=== PATIENT | male | born 1950 | race American Indian/Alaskan Native ===

== ENCOUNTER 2018-03-29 12:32 | Emergency (ER) | payer MEDICARE ==
[2018-03-29 12:42] VITALS: BP 123/67
[2018-03-29 13:32] LABS: Bilirubin,Urine NEG (Negative); Blood,Urine NEG (Negative); Color,Urine Straw (Yellow); Protein,Urine <15 mg/dL mg/dL (Negative); Urobilinogen,Urine < 2.0 mg/dL (<2.0)
--- NOTE | 2018-03-29 15:04 | Emergency Department Report ---
ED Dysuria HPI - HPI Chief Complaint: Urogenital-Male Stated Complaint: BLOOD IN URINE Time Seen by Provider: 03/29/18 14:48 Duration: 1 Day Location of Discomfort: Urethra (dysuria) Severity: Mild Symptoms: Dysuria: No, Frequency: No, Suprapubic Pain: No, Flank Pain: No, Fever : No, Hematuria: Yes, Abdominal Pain: No, Previous UTI's: No Other History: saw urine in blood yesterday. none today ED Review of Systems ROS: Stated complaint: BLOOD IN URINE Other details as noted in HPI Comment: Unobtainable due to pts medical conditions Constitutional: denies: chills, fever Eyes: denies: eye pain ENT: denies: ear pain, throat pain Respiratory: denies: cough, orthopnea Cardiovascular: denies: chest pain, palpitations, dyspnea on exertion, orthopnea Endocrine: denies: flushing, intolerance to cold, intolerance to heat Gastrointestinal: denies: abdominal pain, nausea, vomiting Genitourinary: hematuria (yest; none today.). denies: urgency, dysuria Musculoskeletal: denies: back pain Skin: denies: rash, lesions Neurological: denies: headache, weakness Psychiatric: denies: anxiety, depression Hematological/Lymphatic: denies: easy bleeding ED Past Medical Hx - Past Medical History Hx Hypertension: Yes Hx Diabetes: Yes Additional medical history: AFIB, GI BLEED, off coumadin - Surgical History Past Surgical History?: No - Social History Smoking Status: Former Smoker Substance Use Type: None - Medications Home Medications: Home Medications Medication Instructions Recorded Confirmed Last Taken Type Allopurinol [Zyloprim] 300 mg PO QDAY 03/01/18 03/01/18 Unknown History Doxazosin Mesylate [Cardura] 4 mg PO QDAY 03/01/18 03/01/18 Unknown History Atenolol [Tenormin] 50 mg PO DAILY #30 tablet 03/07/18 Unknown Rx Diltiazem HCl [Diltiazem 24Hr Cd] 240 mg PO QDAY #30 cap.er.24h 03/07/18 Unknown Rx Empagliflozin [Jardiance] 10 mg PO QDAY #30 tablet 03/07/18 Unknown Rx Metformin HCl [Glucophage] 500 mg PO BID #60 tablet 03/07/18 Unknown Rx Sitagliptin Phosphate [Januvia] 100 mg PO QDAY #30 tablet 03/07/18 Unknown Rx Theophylline Anhydrous ER [Juan David-24] 300 mg PO BID #60 capsule 03/07/18 Unknown Rx Warfarin Sodium [Coumadin] 12 mg PO Q48HR #30 tablet 03/07/18 Unknown Rx hydroCHLOROthiazide 25 mg PO QDAY #30 tablet 03/07/18 Unknown Rx [Hydrochlorothiazide] predniSONE [Deltasone] 10 mg PO Q48HR #30 tablet 03/07/18 Unknown Rx Dysuria Exam - Exam General: Vital signs noted. No distress. Alert and acting appropriately. Exam: Yes Moist Mucous Membranes, No CVA Tenderness, No Abdominal Tenderness, No Rigidity or Guarding Exam: neuro intact. no edema/ no jvd/ S1S2. lungs cta. no abd pain or tenderness; snt. ambulatory. no dysuria or discharge from penis. blood sugar 91 per pt this am Labs: Lab Results 03/29/18 Range/Units 13:00 Urine Color Straw (Yellow) Urine Turbidity Clear (Clear) Urine pH 6.0 (5.0-7.0) Ur Specific [place] 1.003 (1.003-1.030) Urine Protein <15 mg/dl (Negative) mg/dL Urine Glucose (UA) >=500 (Negative) mg/dL Urine Ketones Neg (Negative) mg/dL Urine Blood Neg (Negative) Urine Nitrite Neg (Negative) Urine Bilirubin Neg (Negative) Urine Urobilinogen < 2.0 (<2.0) mg/dL Ur Leukocyte Esterase Sm (Negative) Urine WBC (Auto) 2.0 (0.0-6.0) /HPF Urine RBC (Auto) 1.0 (0.0-6.0) /HPF U Epithel Cells (Auto) < 1.0 (0-13.0) /HPF ED Course Vital Signs 03/29/18 12:37 Temperature 98.3 F Pulse Rate 69 Respiratory 18 Rate Blood Pressure 123/67 O2 Sat by Pulse 98 Oximetry ED Medical Decision Making - Medical Decision Making no pain off coumadin blood only seen 1 time last pm DM bs 91 this am taking dm meds NO DYSURIA NO FEVER NO DIFF W STREAM NO BLOOD TODAY - Differential Diagnosis RO UTI; RO CYSTITIS; RO K STONE Critical care attestation.: If time is entered above; I have spent that time in minutes in the direct care of this critically ill patient, excluding procedure time. ED Disposition Clinical Impression: Diabetes, Hematuria Disposition: DC-01 TO HOME OR SELFCARE Is pt being admited?: No Does the pt Need Aspirin: No Condition: Stable Instructions: Diabetes Mellitus Type 2 in Adults (ED) Additional Instructions: follow blood sugars take home meds follow up with pcp diabetic diet hydrate well activity as tolerated follow up with urology if you have any more hematuria Referrals: PRIMARY CARE, [Primary Care Provider] - 3-5 Days NAYELI NAGEL MD [Staff Physician] - 3-5 Days AYAD CHANEL MD [Staff Physician] - 3-5 Days Time of Disposition: 15:03
== END 2018-03-29 15:41 | disposition home or self-care (01) ==
LOC: ED 12:32
DX: R30.0 Dysuria (principal); R31.9 Hematuria, unspecified; E11.69 Type 2 diabetes mellitus with other specified complication; I10 Essential (primary) hypertension; Z87.891 Personal history of nicotine dependence
CPT/HCPCS: 81001; 82962; 99283

== ENCOUNTER 2018-10-22 19:38 | Inpatient (IN) | payer MEDICARE ==
[2018-10-22 20:39] LABS: Basophils # (Auto) 0.1 K/mm3 (0.0-0.1); Basophils % (Auto) 1.1 % (0.0-1.8); Eosinophils # (Auto) 0.1 K/mm3 (0.0-0.4); Eosinophils % (Auto) 1.3 % (0.0-4.3); Hematocrit 45.6 % (35.5-45.6); Hemoglobin 14.9 gm/dl (11.8-15.2); Lymphocytes % (Auto) 27.8 % (13.4-35.0); Mean Corpuscular HGB Conc 33 % (32-34); Mean Corpuscular Volume 89 fl (84-94); Monocytes # (Auto) 1.2 K/mm3 (0.0-0.8); Monocytes % (Auto) 11.3 % (0.0-7.3); Platelet Count 276 K/mm3 (140-440); Red Blood Count 5.12 M/mm3 (3.65-5.03); Red Cell Distribution Width 15.5 % (13.2-15.2)
[2018-10-22] MEDS ORDERED: NACL 0.9% 1000 ML 1,000 ML IV ONE ×2 (20:40→21:12)
--- NOTE | 2018-10-22 20:46 | Emergency Department Report ---
HPI - General Chief Complaint: GI Bleed Time Seen by Provider: 10/22/18 20:34 - HPI HPI: 68-year-old -Finnish male presents to the emergency department with complaint of one-day history of rectal bleeding with some lower abdominal pains. He says that there is been a total of 6 episodes of rectal bleeding including 2 upon presentation to the emergency department. He has a history of previous GI bleed and had some type of interventional radiology procedure last year. A tagged RBC scan had shown some bleeding from the distal ileum. The patient has a past medical history of diverticulosis and also has a history of hypertension, paroxysmal A. fib. He is not currently on any anticoagulation or antiplatelet medications. His primary care physician is Dr. Luis Miguel Weinstein and his child care leader is Dr. Greco. No recent travel or sick contacts at home. ED Past Medical Hx - Past Medical History Previous Medical History?: Yes Hx Hypertension: Yes (X 10 YRS) Hx Diabetes: Yes Hx Asthma: Yes (DAILY INHALERS) Hx HIV: No Additional medical history: AFIB, GI BLEED, Diverticulitis - Surgical History Past Surgical History?: Yes - Social History Smoking Status: Never Smoker Substance Use Type: None - Medications Home Medications: Home Medications Medication Instructions Recorded Confirmed Last Taken Type Allopurinol [Zyloprim] 300 mg PO QDAY 03/01/18 10/22/18 05/04/18 21:00 History Atenolol [Tenormin] 50 mg PO DAILY #30 tablet 03/07/18 10/22/18 05/04/18 19:00 Rx Empagliflozin [Jardiance] 10 mg PO QDAY #30 tablet 03/07/18 10/22/18 05/04/18 19:00 Rx Sitagliptin Phosphate [Januvia] 100 mg PO QDAY #30 tablet 03/07/18 10/22/18 05/04/18 09:00 Rx Theophylline Anhydrous ER [Juan David-24] 300 mg PO BID #60 capsule 03/07/18 10/22/18 05/05/18 09:00 Rx predniSONE [Deltasone] 10 mg PO Q48HR #30 tablet 03/07/18 10/22/18 05/03/18 09:00 Rx Ferrous Sulfate [Ferrous Sulfate 324 mg PO DAILY 04/23/18 10/22/18 05/04/18 09:00 History 324 MG] Metformin HCl [Glucophage] 500 mg PO DAILY 04/23/18 10/22/18 05/04/18 21:00 History ED Review of Systems ROS: Stated complaint: RECTAL BLEEDING Other details as noted in HPI Comment: All other systems reviewed and negative Constitutional: denies: chills, fever Eyes: denies: eye pain, vision change ENT: denies: ear pain, throat pain Respiratory: denies: cough, shortness of breath Cardiovascular: denies: chest pain, palpitations Gastrointestinal: abdominal pain, other (rectal bleeding). denies: nausea, vomiting Genitourinary: denies: dysuria, frequency Musculoskeletal: denies: back pain, arthralgia Skin: denies: rash, lesions Neurological: denies: headache, weakness Physical Exam - Physical Exam Vital Signs: Vital Signs 10/22/18 20:07 Temperature 98.6 F Pulse Rate 81 Respiratory 20 Rate Blood Pressure 100/70 O2 Sat by Pulse 94 Oximetry Physical Exam: GENERAL: The patient is well-developed well-nourished. HEENT: Normocephalic. Atraumatic. Patient has moist mucous membranes. EYES: Extraocular motions are intact. Pupils are equal and reactive to light bilaterally. NECK: Supple. Trachea is midline. CHEST/LUNGS: Clear to auscultation. There is no respiratory distress noted. HEART/CARDIOVASCULAR: Regular. There is no tachycardia. There is no obvious murmur. ABDOMEN: Abdomen is soft, nontender. Patient has normal bowel sounds. There is no abdominal distention. SKIN: Skin is warm and dry. NEURO: The patient is awake, alert, and oriented. The patient is cooperative. The patient has no focal neurologic deficits. The patient has normal speech. MUSCULOSKELETAL: There is no tenderness or deformity. There is no limitation range of motion. There is no evidence of acute injury. ED Course Vital Signs 10/22/18 20:07 Temperature 98.6 F Pulse Rate 81 Respiratory 20 Rate Blood Pressure 100/70 O2 Sat by Pulse 94 Oximetry - Consultations Consultation #1: 10/22/18 23:[address] pelaez, the child care leader career transition specialist for Dr. Greco, who listened to the case presentation. Dr. pelaez recommended starting off as an observational stay secondary to the patient's known history of a significant lower GI bleed, diverticulosis, and since he continues to have gross rectal bleeding. They will be happy to see the patient has a consult. ED Medical Decision Making - Lab Data Result diagrams: 10/22/18 20:17 10/22/18 20:17 - Radiology Data Radiology results: report reviewed PROCEDURE: CT ABDOMEN PELVIS W CON TECHNIQUE: Computerized axial tomography of the abdomen and pelvis was performed after the IV injection of iodinated nonionic contrast. CT DOSE LENGTH PRODUCT: 2747.4 mGycm HISTORY: lower abd pain, rectal bleeding COMPARISONS: 02/27/2018 . FINDINGS: Visualized bilateral lung bases demonstrate interstitial septal thickening with honeycombing consistent with interstitial fibrosis. Liver, spleen, pancreas and bilateral a drenal glands are within normal limits. Left kidney demonstrates a simple cyst measuring 5.9 x 4.3 cm. There is no obstructive uropathy. Right kidney is unremarkable. Urinary bladder is minimally filled with normal outlines. Aorta is of normal caliber. There is no free fluid or free air. Gallbladder is unremarkable. Small bowel loops are within normal limits. Appendix is normal. A 3.5 x 3.0 uncomplicated fat-containing umbilical hernia is noted. Mild degree of prostatomegaly is identified. Vertebral height is normal. IMPRESSION: No acute intra-abdominal or pelvic pathology. This document is electronically signed by Sabine Rubi MD., October 22 2018 10:01:18 PM ET Transcribed By: [facility] [place]ictated By: SABINE RUBI Electronically Authenticated By: SABINE RUBI Signed Date/Time: 10/22/18 2209 - Medical Decision Making Patient presents to the emergency department with rectal bleeding and at this point the patient does not even feel that there is any stool involved. Patient had some abdominal pain that responded to IV morphine. A CT scan of the abdomen and pelvis with IV contrast was done that was read as no acute intra-abdominal or pelvic pathology. The patient has had a total of 7 episodes of significant rectal bleeding including 3 within the emergency department. Vital signs stable. Hemoglobin is 14.9. Gastroenterology was contacted and will be consult. The patient was excepted for admission by the hospitalist, Dr. Soriano. - Differential Diagnosis diverticulosis, malignancy, hemorrhoids, peptic ulcer disease Critical Care Time: No Critical care attestation.: If time is entered above; I have spent that time in minutes in the direct care of this critically ill patient, excluding procedure time. ED Disposition Clinical Impression: Rectal bleeding GI bleed Qualifiers: GI bleed type/associated pathology: unspecified gastrointestinal hemorrhage type Qualified Code(s): K92.2 - Gastrointestinal hemorrhage, unspecified Disposition: DC-09 OP ADMIT IP TO THIS HOSP Is pt being admited?: Yes Condition: Fair Referrals: LUIS MIGUEL WEINSTEIN MD [Primary Care Provider] - 3-5 Days Forms: Accompanied Note Time of Disposition: 23:14
[2018-10-22 21:05] LABS: INR 1.04 (0.87-1.13)
[2018-10-22 21:06] LABS: Partial Thromboplastin Time 27.2 Sec. (24.2-36.6)
[2018-10-22] MEDS ORDERED: PROTONIX IV ONE (21:11)
[2018-10-22] MEDS ORDERED: SUBLIMAZE IV ONE ×2 (21:11→21:25)
[2018-10-22 21:15] LABS: BUN/Creatinine Ratio 18; Blood Urea Nitrogen 21 mg/dL (9-20); Calcium 9.4 mg/dL (8.4-10.2); Hemolysis Index 7
[2018-10-22] MEDS ORDERED: SUBLIMAZE ONE (21:26)
--- NOTE | 2018-10-22 22:03 | Cat Scan Report ---
PROCEDURE: CT ABDOMEN PELVIS W CON TECHNIQUE: Computerized axial tomography of the abdomen and pelvis was performed after the IV inject ion of iodinated nonionic contrast. CT DOSE LENGTH PRODUCT: 2747.4 mGycm HISTORY: lower abd pain, rectal bleeding COMPARISONS: 02/27/2018 . FINDINGS: Visualized bilateral lung bases demonstrate interstitial septal thickening with honeycombing consiste nt with interstitial fibrosis. Liver, spleen, pancreas and bilateral adrenal glands are within normal limits. Left kidney demonstrates a simple cyst measuring 5.9 x 4.3 cm. There is no obstructive uropa thy. Right kidney is unremarkable. Urinary bladder is minimally filled with normal outlines. Aorta is of normal caliber. There is no free fluid or free air. Gallbladder is unremarkable. Small bowel loop s are within normal limits. Appendix is normal. A 3.5 x 3.0 uncomplicated fat-containing umbilical he rnia is noted. Mild degree of prostatomegaly is identified. Vertebral height is normal. IMPRESSION: No acute intra-abdominal or pelvic pathology. This document is electronically signed by Theo Rubi MD., October 22 2018 10:01:18 PM ET
--- NOTE | 2018-10-22 23:18 | History and Physical Report ---
History of Present Illness Date of examination: 10/22/18 History of present illness: 68-year-old man with a history of hypertension, diabetes, A. 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 He had 5 episodes at home, 4 episodes in the emergency room. Also complaining of abdominal pain, across the mid abdomen, dull, intermittent for a few minutes, no radiation, intensity 4/10, cannot identify exacerbating or relieving factors Review of systems Constitutional: no weight loss, chills, fever Ears, eyes, nose, mouth and throat: no nasal congestion, no nasal discharge, no sinus pressure, no vision change, no red eye. Neck: No neck pain or rigidity. Cardiovascular: no chest pain, palpitations Respiratory: no cough, shortness of breath Gastrointestinal:+ abdominal pain Genitourinary : no frequency , no hematuria Musculoskeletal: no joint swelling or muscle ache Integumentary: no rash, no pruritis Neurological: no parathesias, no numbness, no focal weakness Endocrine: no cold or heat intolerance, no polyuria or polydipsia Hematologic/Lymphatic: no easy bruising, no easy bleeding, no gland swelling Allergic/Immunologic: no urticaria, no angioedema. PAST MEDICAL HISTORY: hypertension, diabetes, AVM, diverticulosis, leaky valve PAST SURGICAL HISTORY: None SOCIAL HISTORY: No alcohol, no drugs, tobacco FAMILY HISTORY: Hypertension Medications and Allergies Allergies Allergy/AdvReac Type Severity Reaction Status Date / Time No Known Allergies Allergy Verified 04/26/18 14:53 Home Medications Medication Instructions Recorded Confirmed Last Taken Type Allopurinol [Zyloprim] 300 mg PO QDAY 03/01/18 10/22/18 05/04/18 21:00 History Atenolol [Tenormin] 50 mg PO DAILY #30 tablet 03/07/18 10/22/18 05/04/18 19:00 Rx Empagliflozin [Jardiance] 10 mg PO QDAY #30 tablet 03/07/18 10/22/18 05/04/18 19:00 Rx Sitagliptin Phosphate [Januvia] 100 mg PO QDAY #30 tablet 03/07/18 10/22/18 05/04/18 09:00 Rx Theophylline Anhydrous ER [Juan David-24] 300 mg PO BID #60 capsule 09/03/1610/22/18 05/05/18 09:00 Rx predniSONE [Deltasone] 10 mg PO Q48HR #30 tablet 03/07/18 10/22/18 05/03/18 09:00 Rx Ferrous Sulfate [Ferrous Sulfate 324 mg PO DAILY 04/23/18 10/22/18 05/04/18 09:00 History 324 MG] Metformin HCl [Glucophage] 500 mg PO DAILY 04/23/18 10/22/18 05/04/18 21:00 History Active Meds: Active Medications Sodium Chloride (Nacl 0.9% 1000 Ml) 1,000 mls @ 125 mls/hr IV ONCE ONE Stop: 10/23/18 04:39 Exam - Physical Exam Narrative exam: Gen. appearance: Patient lying in bed, no apparent distress HEENT: Normocephalic, atraumatic, pupils equally round and reactive to light, extraocular movement intact, and no sclericterus,. No JVD or thyromegaly or nod ule,neck supple, no carotid bruit ,mucous membranes moist, no exudate or erythema Heart: S1, S2, regular rate and rhythm Lungs: Clear bilaterally, breathing comfortable Abdomen: Positive bowel sounds, non-tender, nondistended, no organomegaly Extremity:no edema cyanosis, clubbing Skin: no rash, dry, warm Neuro: Oriented 3, cranial nerves II-12 intact, speech is fluent, motor and sensory intact - Constitutional Vitals: Temp Pulse Resp BP Pulse Ox 97.7 F 74 24 106/69 96 10/22/18 20:40 10/22/18 22:31 10/22/18 22:31 10/22/18 22:31 10/22/18 22:31 Results - Labs CBC & Chem 7: 10/22/18 23:28 10/22/18 20:17 Labs: Abnormal lab results 10/22/18 10/22/18 Range/Units 20:17 20:17 RBC 5.12 H (3.65-5.03) M/mm3 RDW 15.5 H (13.2-15.2) % [place] % (Auto) 11.3 H (0.0-7.3) % [place] # 1.2 H (0.0-0.8) K/mm3 Carbon Dioxide 21 L (22-30) mmol/L BUN 21 H (9-20) mg/dL Glucose 137 H (75-100) mg/dL - Imaging and Cardiology CT scan - abdomen: report reviewed CT scan - pelvis: report reviewed Assessment and Plan Assessment Lower GI bleed History of AVM, diverticulosis Hypertension Diabetes Asthma A. fib Plan Admit to medicine Monitor serial hemoglobin, GI consulted to ER Start fluid, morphine, Check fingersticks and initiate insulin sliding scale DVT prophylaxis
[2018-10-22] MEDS ORDERED: SODIUM CHLORIDE FLUSH SYRINGE 10 ML IV PRN (23:19)
[2018-10-22] MEDS ORDERED: ZOFRAN IV PRN (23:19)
[2018-10-22] MEDS ORDERED: D50W (25GM) Syringe IV PRN (23:19)
[2018-10-22] MEDS ORDERED: TYLENOL PO PRN (23:19)
[2018-10-22] MEDS ORDERED: MORPHINE IV PRN (23:19)
[2018-10-22 23:38] LABS: Hematocrit 40.9 % (35.5-45.6); Hemoglobin 13.4 gm/dl (11.8-15.2)
[2018-10-22] MEDS: NACL 0.45% 1000 ML 1,000 ML IV SCH (23:58)
[2018-10-23 05:20] LABS: Basophils # (Auto) 0.1 K/mm3 (0.0-0.1); Basophils % (Auto) 0.8 % (0.0-1.8); Eosinophils # (Auto) 0.1 K/mm3 (0.0-0.4); Eosinophils % (Auto) 1.1 % (0.0-4.3); Hematocrit 40.6 % (35.5-45.6); Hemoglobin 13.4 gm/dl (11.8-15.2); Lymphocytes # (Auto) 1.6 K/mm3 (1.2-5.4); Lymphocytes % (Auto) 16.6 % (13.4-35.0); Mean Corpuscular HGB Conc 33 % (32-34); Mean Corpuscular Volume 89 fl (84-94); Monocytes # (Auto) 0.8 K/mm3 (0.0-0.8); Monocytes % (Auto) 8.4 % (0.0-7.3); Platelet Count 214 K/mm3 (140-440); Red Blood Count 4.56 M/mm3 (3.65-5.03); Red Cell Distribution Width 15.7 % (13.2-15.2)
[2018-10-23 05:38] LABS: BUN/Creatinine Ratio 18; Blood Urea Nitrogen 20 mg/dL (9-20); Calcium 8.6 mg/dL (8.4-10.2); Hemolysis Index 21
[2018-10-23 07:32] LABS: Hematocrit 40.1 % (35.5-45.6); Hemoglobin 13.4 gm/dl (11.8-15.2)
--- NOTE | 2018-10-23 08:40 | Progress Note ---
Assessment and Plan Assessment and plan: Patient is a 68-year-old man with a history of hypertension, diabetes, A. 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 He had 5 episodes at home, 4 episodes in the emergency room. * CT ABDOMEN PELVIS W CON IMPRESSION: No acute intra-abdominal or pelvic pathology. Suspected Acute on chronic blood loss anemia suspected, Lower GI bleed History of AVM, diverticulosis Hypertension Diabetes Asthma A. fib, but in SR: continue rate control, no a.c due to GIB Plan Admit to medicine Monitor serial hemoglobin, GI consulted to ER Start fluid, morphine, Check fingersticks and initiate insulin sliding scale DVT prophylaxis History Interval history: Patient was seen and examined. Follow-up on current diagnosis. Overnight uneventful. Patient denies any chest pain, shortness breath, nausea/vomiting or severe headaches. Imaging, nursing note, chart, labs and old chart reviewed. Discussed with patient. Hospitalist Physical - Physical exam Narrative exam: Gen: WDWN, NAD, Awake, Alert, Orientated HEENT: NCAT, EOMI, PERRL, OP Clear Neck: supple, no adenopathy, no thyromegaly, no JVD CVS/Heart: RRR, normal S1S2, pulses present bilaterally Chest/Lungs: CTA B, Symmetrical chest expansion, good air entry bilaterally GI/Abdomen: soft, NTND, good bowel sounds, no guarding or rebound /Bladder: no suprapubic tenderness, no CVA or paraspinal tenderness Extermity/Skin: no c/c/e, no obvious rash MSK: FROM x 4 Neuro: CN 2-12 grossly intact, no new focal deficits Psych: calm - Constitutional Vitals: Temp Pulse Resp BP Pulse Ox 98.4 F 75 20 104/69 93 10/23/18 04:00 10/23/18 06:00 10/23/18 06:00 10/23/18 06:00 10/23/18 06:00 Results - Labs CBC & Chem 7: 10/23/18 07:18 10/23/18 04:34 Labs: Laboratory Last Values WBC 9.5 K/mm3 (4.5-11.0) 10/23/18 04:34 RBC 4.56 M/mm3 (3.65-5.03) 10/23/18 04:34 Hgb 13.4 gm/dl (11.8-15.2) 10/23/18 07:18 Hct 40.1 % (35.5-45.6) 10/23/18 07:18 MCV 89 fl (84-94) 10/23/18 04:34 MCH 29 pg (28-32) 10/23/18 04:34 MCHC 33 % (32-34) 10/23/18 04:34 RDW 15.7 % (13.2-15.2) H 10/23/18 04:34 Plt Count 214 K/mm3 (140-440) 10/23/18 04:34 Lymph % (Auto) 16.6 % (13.4-35.0) 10/23/18 04:34 [place] % (Auto) 8.4 % (0.0-7.3) H 10/23/18 04:34 Eos % (Auto) 1.1 % (0.0-4.3) 10/23/18 04:34 Baso % (Auto) 0.8 % (0.0-1.8) 10/23/18 04:34 Lymph # 1.6 K/mm3 (1.2-5.4) 10/23/18 04:34 [place] # 0.8 K/mm3 (0.0-0.8) 10/23/18 04:34 Eos # 0.1 K/mm3 (0.0-0.4) 10/23/18 04:34 Baso # 0.1 K/mm3 (0.0-0.1) 10/23/18 04:34 Seg Neutrophils % 73.1 % (40.0-70.0) H 10/23/18 04:34 Seg Neutrophils # 7.0 K/mm3 (1.8-7.7) 10/23/18 04:34 PT 14.2 Sec. (12.2-14.9) 10/22/18 20:45 INR 1.04 (0.87-1.13) 10/22/18 20:45 APTT 27.2 Sec. (24.2-36.6) 10/22/18 20:45 Sodium 139 mmol/L (137-145) 10/23/18 04:34 Potassium 4.3 mmol/L (3.6-5.0) 10/23/18 04:34 Chloride 105.0 mmol/L (98-107) 10/23/18 04:34 Carbon Dioxide 19 mmol/L (22-30) L 10/23/18 04:34 Anion Gap 19 mmol/L 10/23/18 04:34 BUN 20 mg/dL (9-20) 10/23/18 04:34 Creatinine 1.1 mg/dL (0.8-1.5) 10/23/18 04:34 Estimated GFR > 60 ml/min 10/23/18 04:34 BUN/Creatinine Ratio 18 % 10/23/18 04:34 Glucose 113 mg/dL (75-100) H 10/23/18 04:34 POC Glucose 99 (70-105) 10/23/18 08:02 Calcium 8.6 mg/dL (8.4-10.2) 10/23/18 04:34 Active Medications - Current Medications Current Medications: Generic Name Dose Route Start Last Admin Trade Name Freq PRN Reason Stop Dose Admin Acetaminophen 650 mg 10/22/18 23:19 Tylenol PO Q4H PRN Pain MILD(1-3)/Fever >100.5/GREGG Allopurinol 300 mg 10/23/18 10:00 Zyloprim PO QDAY [facility] Dextrose 50 ml 10/22/18 23:19 D50w (25gm) Syringe IV PRN PRN Hypoglycemia Ferrous Sulfate 325 mg 10/23/18 10:00 Feosol PO DAILY [facility] Sodium Chloride 1,000 mls @ 75 mls/hr 10/22/18 23:45 10/22/18 23:58 Nacl 0.45% 1000 Ml IV 75 mls/hr DIRECT SHADI Administration Morphine Sulfate 2 mg 10/22/18 23:19 Morphine IV Q4H PRN Pain, Moderate (4-6) Ondansetron HCl 4 mg 10/22/18 23:19 Zofran IV Q4H PRN Nausea And Vomiting Sodium Chloride 10 ml 10/23/18 10:00 Sodium Chloride Flush Syringe 10 Ml IV BID SHADI Sodium Chloride 10 ml 10/22/18 23:19 Sodium Chloride Flush Syringe 10 Ml IV PRN PRN LINE FLUSH Theophylline 300 mg 10/23/18 10:00 Theodur PO Q12HR [facility]
[2018-10-23] MEDS ORDERED: THEO-24 PO SCH ×2 (10:00)
[2018-10-23] MEDS ORDERED: NON-FORMULARY (Ferrous Sulfate [Ferrous Sulfate 324 Mg] 324 MG) PO SCH (10:00)
--- NOTE | 2018-10-23 10:30 | Gastroenterology Consultation ---
History of Present Illness - Reason for Consult Consult date: 10/23/18 GI Bleed Requesting physician: SADIQ QIU - History of Present Illness The patient is a 68 yo male admitted with rectal bleeding, with a hx of same last year. In 2018 he had acute rectal bleeding (on coumadin/AF) with dx of likely vascular lesion in the ileum. This resolved after coil embolization. He has had one episode since earlier this year, but it resolved within 24 hours. He is no longer on anticoagulation. He has no N/V/abdominal pain. His current bleeding started within the last 24 hours, and he has had none in the last 6 hours. He denies any NSAID or blood thinners; a colonoscopy in Dr Wesley's office last year was negative. He does not recall a capsule endoscopy. He did not have surgical resection of the bleeding lesion last year. Past History Past Medical History: diabetes, hypertension, other (Gout, Small bowel bleed 2018, Lung Disease (Pulmonary fibrosis on CT; ?COPD)) Past Surgical History: No surgical history Social history: denies: smoking, alcohol abuse Family history: no significant family history Medications and Allergies Allergies Allergy/AdvReac Type Severity Reaction Status Date / Time No Known Allergies Allergy Verified 04/26/18 14:53 Home Medications Medication Instructions Recorded Confirmed Last Taken Type Allopurinol [Zyloprim] 300 mg PO QDAY 03/01/18 10/22/18 05/04/18 21:00 History Atenolol [Tenormin] 50 mg PO DAILY #30 tablet 03/07/18 10/22/18 05/04/18 19:00 Rx Empagliflozin [Jardiance] 10 mg PO QDAY #30 tablet 03/07/18 10/22/18 05/04/18 19:00 Rx Sitagliptin Phosphate [Januvia] 100 mg PO QDAY #30 tablet 03/07/18 10/22/18 1 07/04/17 09:00 Rx Theophylline Anhydrous ER [Juan David-24] 300 mg PO BID #60 capsule 03/07/18 10/22/18 05/05/18 09:00 Rx predniSONE [Deltasone] 10 mg PO Q48HR #30 tablet 03/07/18 10/22/18 05/03/18 09:00 Rx Ferrous Sulfate [Ferrous Sulfate 324 mg PO DAILY 04/23/18 10/22/18 05/04/18 09:00 History 324 MG] Metformin HCl [Glucophage] 500 mg PO DAILY 04/23/18 10/22/18 05/04/18 21:00 History Active Meds: Active Medications Acetaminophen (Tylenol) 650 mg PO Q4H PRN PRN Reason: Pain MILD(1-3)/Fever >100.5/GREGG Allopurinol (Zyloprim) 300 mg PO QDAY [facility] Dextrose (D50w (25gm) Syringe) 50 ml IV PRN PRN PRN Reason: Hypoglycemia Ferrous Sulfate (Feosol) 325 mg PO DAILY [facility] Sodium Chloride (Nacl 0.45% 1000 Ml) 1,000 mls @ 75 mls/hr IV DIRECT SHADI Last Admin: 10/22/18 23:58 Dose: 75 mls/hr Documented by: Morphine Sulfate (Morphine) 2 mg IV Q4H PRN PRN Reason: Pain, Moderate (4-6) Ondansetron HCl (Zofran) 4 mg IV Q4H PRN PRN Reason: Nausea And Vomiting Pantoprazole Sodium (Protonix) 40 mg PO QDAY [facility] Sodium Chloride (Sodium Chloride Flush Syringe 10 Ml) 10 ml IV BID [facility] Sodium Chloride (Sodium Chloride Flush Syringe 10 Ml) 10 ml IV PRN PRN PRN Reason: LINE FLUSH Theophylline (Theodur) 300 mg PO Q12HR [facility] I HAVE REVIEWED AND RECONCILED MEDICATIONS Review of Systems - Review of Systems All systems: negative (as noted in the HPI) Exam - Constitutional Vital Signs: Temp Pulse Resp BP Pulse Ox 98.4 F 75 20 104/69 93 10/23/18 04:00 10/23/18 06:00 10/23/18 06:00 10/23/18 06:00 10/23/18 06:00 General appearance: no acute distress - EENT Eyes: PERRL, EOM intact ENT: hearing intact, clear oral mucosa - Neck Neck: supple, normal ROM - Respiratory Respiratory effort: normal Respiratory: bilateral: CTA - Cardiovascular Rhythm: other (Sinus Rhythm) Heart Sounds: Present: S1 & S2 Extremities: no ischemia, No edema - Gastrointestinal General gastrointestinal: Present: soft, non-tender, non-distended - Integumentary Integumentary: Present: clear, warm, dry - Neurologic Neurological: alert and oriented x3 - Labs CBC & Chem 7: 10/23/18 07:18 10/23/18 04:34 Lab Results: Laboratory Results - last 24 hr 10/22/18 10/22/18 10/22/18 20:17 20:17 20:45 WBC 10.9 RBC 5.12 H Hgb 14.9 Hct 45.6 MCV 89 MCH 29 MCHC 33 RDW 15.5 H Plt Count 276 Lymph % (Auto) 27.8 Motley % (Auto) 11.3 H Eos % (Auto) 1.3 Baso % (Auto) 1.1 Lymph # 3.0 Motley # 1.2 H Eos # 0.1 Baso # 0.1 Seg Neutrophils % 58.5 Seg Neutrophils # 6.4 PT 14.2 INR 1.04 APTT 27.2 Sodium 137 Potassium 4.0 Chloride 104.7 Carbon Dioxide 21 L Anion Gap 15 BUN 21 H Creatinine 1.2 Estimated GFR > 60 BUN/Creatinine Ratio 18 Glucose 137 H POC Glucose Calcium 9.4 10/22/18 10/23/18 10/23/18 23:28 00:08 04:34 WBC 9.5 RBC 4.56 Hgb 13.4 13.4 Hct 40.9 40.6 MCV 89 MCH 29 MCHC 33 RDW 15.7 H Plt Count 214 Lymph % (Auto) 16.6 Motley % (Auto) 8.4 H Eos % (Auto) 1.1 Baso % (Auto) 0.8 Lymph # 1.6 Motley # 0.8 Eos # 0.1 Baso # 0.1 Seg Neutrophils % 73.1 H Seg Neutrophils # 7.0 PT INR APTT Sodium Potassium Chloride Carbon Dioxide Anion Gap BUN Creatinine Estimated GFR BUN/Creatinine Ratio Glucose POC Glucose 115 H Calcium 10/23/18 10/23/18 10/23/18 04:34 07:18 08:02 WBC RBC Hgb 13.4 Hct 40.1 MCV MCH MCHC RDW Plt Count Lymph % (Auto) Motley % (Auto) Eos % (Auto) Baso % (Auto) Lymph # Motley # Eos # Baso # Seg Neutrophils % Seg Neutrophils # PT INR APTT Sodium 139 Potassium 4.3 Chloride 105.0 Carbon Dioxide 19 L Anion Gap 19 BUN 20 Creatinine 1.1 Estimated GFR > 60 BUN/Creatinine Ratio 18 Glucose 113 H POC Glucose 99 Calcium 8.6 Assessment and Plan - Patient Problems (1) Rectal bleeding Current Visit: Yes Status: Acute Plan to address problem: - Hx of SB bleed 2018, resolved with embolization; colonoscopy negative 2018 by report. - Current hct normal after 12 hours, without gross bleeding. - Since not on anticoagulation, would advance diet; if stable, may d/c and complete w/u with Dr Greco as an outpatient (would get capsule endoscopy if not already done).
[2018-10-23] MEDS: THEODUR PO SCH ×2 (10:42→22:03)
[2018-10-23] MEDS: FEOSOL PO SCH (10:42)
[2018-10-23] MEDS: ZYLOPRIM PO SCH (10:42)
[2018-10-23] MEDS: SODIUM CHLORIDE FLUSH SYRINGE 10 ML IV SCH ×2 (10:43→22:03)
[2018-10-23] MEDS: NACL 0.45% 1000 ML 1,000 ML IV SCH (19:23)
[2018-10-24 05:58] LABS: Hematocrit 37.1 % (35.5-45.6); Hemoglobin 12.3 gm/dl (11.8-15.2); Mean Corpuscular HGB Conc 33 % (32-34); Mean Corpuscular Volume 88 fl (84-94); Platelet Count 197 K/mm3 (140-440); Red Blood Count 4.21 M/mm3 (3.65-5.03); Red Cell Distribution Width 15.5 % (13.2-15.2)
[2018-10-24 06:06] LABS: BUN/Creatinine Ratio 18; Blood Urea Nitrogen 16 mg/dL (9-20); Calcium 8.2 mg/dL (8.4-10.2); Hemolysis Index 3
[2018-10-24 08:19] VITALS: BP 113/65
[2018-10-24] MEDS: THEODUR PO SCH (09:53)
[2018-10-24] MEDS: ZYLOPRIM PO SCH (09:53)
[2018-10-24] MEDS: FEOSOL PO SCH (09:53)
[2018-10-24] MEDS: SODIUM CHLORIDE FLUSH SYRINGE 10 ML IV SCH (09:57)
[2018-10-24] MEDS ORDERED: PROTONIX PO SCH (10:00)
--- NOTE | 2018-10-24 10:49 | Gastroenterology Progress Note ---
Assessment and Plan - Patient Problems (1) Rectal bleeding Current Visit: Yes Status: Acute Plan to address problem: - Hx of SB bleed 2018, resolved with embolization; colonoscopy negative 2018 by report (our clinic). - Current hct normal after 36 hours, without significant bleeding. - Patient should f/u with Dr Greco for a possible capsule endoscopy, and consideration of resumption of anticoagulation given chronic AF. - Will sign off; OK to d/c patient to f/u in the clinic. - Please call if needed. Subjective Date of service: 10/24/18 Principal diagnosis: GI Bleed Interval history: The patient has had no N/V/Pain with eating a regular diet. There was a trace of blood with his stool, but markedly improved from prior to admit, and hct remains WNL. Objective - Constitutional Vitals: Temp Pulse Resp BP Pulse Ox 98.1 F 82 18 113/65 99 10/24/18 07:36 10/24/18 08:59 10/24/18 08:59 10/24/18 07:36 10/24/18 08:59 General appearance: no acute distress - Respiratory Respiratory effort: normal Respiratory: bilateral: CTA - Cardiovascular Rhythm: regular Heart Sounds: Present: S1 & S2 - Gastrointestinal General gastrointestinal: Present: soft, non-tender, non-distended - Labs CBC & Chem 7: 10/24/18 04:41 10/24/18 04:41 Labs: Laboratory Results - last 24 hr 10/23/18 10/23/18 10/23/18 12:40 16:56 21:36 WBC RBC Hgb Hct MCV MCH MCHC RDW Plt Count Sodium Potassium Chloride Carbon Dioxide Anion Gap BUN Creatinine Estimated GFR BUN/Creatinine Ratio Glucose POC Glucose 173 H 105 130 H Calcium 10/24/18 10/24/18 10/24/18 04:41 04:41 06:32 WBC 7.1 RBC 4.21 Hgb 12.3 Hct 37.1 MCV 88 MCH 29 MCHC 33 RDW 15.5 H Plt Count 197 Sodium 138 Potassium 3.6 Chloride 104.0 Carbon Dioxide 21 L Anion Gap 17 BUN 16 Creatinine 0.9 Estimated GFR > 60 BUN/Creatinine Ratio 18 Glucose 105 H POC Glucose 106 H Calcium 8.2 L
--- NOTE | 2018-10-24 12:03 | Discharge Summary ---
Providers - Providers Date of Admission: 10/22/18 23:18 Date of discharge: 10/24/18 Attending physician: SADIQ QIU 10/22/18 22:50 Consult to Physician [CONS] Routine Comment: Consulting Provider: JUAN DE LA FUENTE Physician Instructions: Reason For Exam: GI Bleed Primary care physician: LUIS MIGUEL SWEET Hospitalization Condition: Stable Hospital course: Patient is a 68-year-old man with a history of hypertension, diabetes, A. 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 He had 5 episodes at home, 4 episodes in the emergency room. * CT ABDOMEN PELVIS W CON IMPRESSION: No acute intra-abdominal or pelvic pathology. Rectal bleeding History of AVM, diverticulosis Hypertension Diabetes mellitus type 2 Asthma A. fib, but in SR: continue rate control, no a.c due to GIB Disposition: DC-01 TO HOME OR SELFCARE Time spent for discharge: 34 minutes Core Measure Documentation - Palliative Care Palliative Care/ Comfort Measures: Not Applicable - Core Measures Any of the following diagnoses?: none - VTE Discharge Requirements Deep Vein Thrombosis/Pulmonary Embolism Present on Admission: No Has pt received <5 days of overlap therapy or INR<2.0: No Anticoagulant overlap therapy prescribed at discharge: No Contraindication No Overlap Therapy order at DC: Not Indicated Exam - Physical Exam Narrative exam: Gen: WDWN, NAD, Awake, Alert, Orientated HEENT: NCAT, EOMI, PERRL, OP Clear Neck: supple, no adenopathy, no thyromegaly, no JVD CVS/Heart: RRR, normal S1S2, pulses present bilaterally Chest/Lungs: CTA B, Symmetrical chest expansion, good air entry bilaterally GI/Abdomen: soft, NTND, good bowel sounds, no guarding or rebound /Bladder: no suprapubic tenderness, no CVA or paraspinal tenderness Extermity/Skin: no c/c/e, no obvious rash MSK: FROM x 4 Neuro: CN 2-12 grossly intact, no new focal deficits Psych: calm - Constitutional Vitals: Temp Pulse Resp BP Pulse Ox 98.1 F 85 18 113/65 99 10/24/18 07:36 10/24/18 10:00 10/24/18 08:59 10/24/18 07:36 10/24/18 08:59 Plan Activity: other (no strenous activity unless cleared by PCP) Diet: low salt, diabetic Follow up with: LUIS MIGUEL SWEET MD [Primary Care Provider] - 3-5 Days JEAN PIERRE SCOTT MD [Staff Physician] - 7 Days Forms: Accompanied Note
== END 2018-10-24 13:10 | disposition home or self-care (01) | DRG 379 ==
LOC: ED 19:38 → IMCU 23:18 → 2B-ACE 10-23 18:07
PROVIDERS: ADMIT Internal Medicine; ATTEND Internal Medicine
DX: K57.91 Diverticulosis of intestine, part unspecified, without perforation or abscess with bleeding (principal); I48.91 Unspecified atrial fibrillation; I10 Essential (primary) hypertension; E11.9 Type 2 diabetes mellitus without complications; M10.9 Gout, unspecified; J45.909 Unspecified asthma, uncomplicated; Z82.49 Family history of ischemic heart disease and other diseases of the circulatory system; Z79.899 Other long term (current) drug therapy
CPT/HCPCS: 36415; 74177; 80048; 82962; 85014; 85018; 85025; 85027; 85610; 85730; 87116; 94760; 96374; 96375; G0378; C9113; J3010; J7030; Q9967

== ENCOUNTER 2020-02-19 21:58 | Observation (INO) | payer MEDICARE ==
[2020-02-20 00:14] LABS: Basophils # (Auto) 0.1 K/mm3 (0.0-0.1); Basophils % (Auto) 0.6 % (0.0-1.8); Eosinophils # (Auto) 0.2 K/mm3 (0.0-0.4); Eosinophils % (Auto) 1.2 % (0.0-4.3); Hematocrit 35.9 % (35.5-45.6); Lymphocytes # (Auto) 1.8 K/mm3 (1.2-5.4); Lymphocytes % (Auto) 11.8 % (13.4-35.0); Mean Corpuscular HGB Conc 33 % (32-34); Mean Corpuscular Volume 90 fl (84-94); Monocytes # (Auto) 1.4 K/mm3 (0.0-0.8); Monocytes % (Auto) 9.3 % (0.0-7.3); Platelet Count 311 K/mm3 (140-440); Red Blood Count 3.97 M/mm3 (3.65-5.03); Red Cell Distribution Width 14.2 % (13.2-15.2)
[2020-02-20 00:21] LABS: Calcium 8.9 mg/dL (8.4-10.2)
[2020-02-20] MEDS ORDERED: SODIUM CHLORIDE 0.9% 500 ML 500 ML IV ONE (01:22)
--- NOTE | 2020-02-20 01:49 | Emergency Department Report ---
ED GI Bleed HPI - General Chief complaint: GI Bleed Stated complaint: DARK STOOL Time Seen by Provider: 02/20/20 01:21 Source: patient Mode of arrival: Ambulatory Limitations: No Limitations - History of Present Illness Initial comments: Mr. Francisco is a 69-year-old male with history of asthma, COPD, diabetes mellitus, hypertension, GI bleed involving the small bowel requiring previous history of embolization of ileocolic artery, sarcoidosis who presents with dark stools for the past 2 days. He is also had mild stomach upset with bowel movements. Also noticed hiccups recently. He is currently taking Plavix. No longer taking warfarin since admitted for last GI bleed. PCP Dr. Haile Weinstein Managed Care Analyst Dr. Doran Plant [employer] Supervisor Dr. Fannie RIDER complaint: melena (Dark tarry stools) -: Gradual, days(s) (2 days) Severity scale (0 -10): 0 Quality: cramping Consistency: other (Pain has resolved, black tarry stools continues) Improves with: none Context: history of GI bleed Associated Symptoms: other (Hiccups) - Related Data Home Medications Medication Instructions Recorded Confirmed Last Taken allopurinoL [Zyloprim] 300 mg PO QDAY 03/01/18 10/22/18 05/04/18 21:00 Ferrous Sulfate [Ferrous Sulfate 324 mg PO DAILY 04/23/18 10/22/18 05/04/18 09:00 324 MG] Metformin HCl [Glucophage] 500 mg PO DAILY 04/23/18 10/22/18 05/04/18 21:00 Previous Rx's Medication Instructions Recorded Last Taken Type Empagliflozin [Jardiance] 10 mg PO QDAY #30 tablet 03/07/18 05/04/18 19:00 Rx Theophylline Anhydrous ER [Juan David-24] 300 mg PO BID #60 capsule 03/07/18 05/05/18 09:00 Rx atenoloL [Tenormin] 50 mg PO DAILY #30 tablet 03/07/18 05/04/18 19:00 Rx Pantoprazole [Protonix] 40 mg PO QDAY #30 tablet 10/24/18 Unknown Rx Allergies Allergy/AdvReac Type Severity Reaction Status Date / Time No Known Allergies Allergy Verified 04/26/18 14:53 ED Review of Systems ROS: Stated complaint: DARK STOOL Other details as noted in HPI Comment: All other systems reviewed and negative Constitutional: denies: fever, malaise Respiratory: denies: shortness of breath Cardiovascular: denies: chest pain Gastrointestinal: abdominal pain, other (Dark tarry stool) ED Past Medical Hx - Past Medical History Previous Medical History?: Yes Hx Hypertension: Yes Hx Diabetes: Yes Hx Asthma: Yes (DAILY INHALERS) Hx COPD: Yes Hx HIV: No Additional medical history: AFIB, GI BLEED, Diverticulitis - Surgical History Past Surgical History?: Yes - Social History Smoking Status: Never Smoker Substance Use Type: None - Medications Home Medications: Home Medications Medication Instructions Recorded Confirmed Last Taken Type allopurinoL [Zyloprim] 300 mg PO QDAY 03/01/18 10/22/18 05/04/18 21:00 History Empagliflozin [Jardiance] 10 mg PO QDAY #30 tablet 03/07/18 10/22/18 05/04/18 19:00 Rx Theophylline Anhydrous ER [Juan David-24] 300 mg PO BID #60 capsule 03/07/18 10/22/18 05/05/18 09:00 Rx atenoloL [Tenormin] 50 mg PO DAILY #30 tablet 03/07/18 10/22/18 05/04/18 19:00 Rx Ferrous Sulfate [Ferrous Sulfate 324 mg PO DAILY 04/23/18 10/22/18 05/04/18 09:00 History 324 MG] Metformin HCl [Glucophage] 500 mg PO DAILY 04/23/18 10/22/18 05/04/18 21:00 History Pantoprazole [Protonix] 40 mg PO QDAY #30 tablet 10/24/18 Unknown Rx ED Physical Exam - General Limitations: No Limitations General appearance: alert, in no apparent distress - Head Head exam: Present: atraumatic, normocephalic - Eye Eye exam: Present: normal appearance - ENT ENT exam: Present: mucous membranes moist - Neck Neck exam: Present: normal inspection, full ROM - Respiratory Respiratory exam: Present: normal lung sounds bilaterally. Absent: respiratory distress, wheezes, rales, rhonchi - Cardiovascular Cardiovascular Exam: Present: regular rate, normal rhythm, normal heart sounds. Absent: systolic murmur, diastolic murmur, rubs, gallop - GI/Abdominal GI/Abdominal exam: Present: soft, normal bowel sounds. Absent: tenderness, guarding, rebound - Rectal Rectal exam: Present: heme (+) stool, black stool (Black tarry stool) - Extremities Exam Extremities exam: Present: normal inspection - Neurological Exam Neurological exam: Present: alert, oriented X3 - Psychiatric Psychiatric exam: Present: normal affect, normal mood - Skin Skin exam: Present: warm, dry, intact, normal color. Absent: rash ED Course Vital Signs 02/19/20 02/20/20 23:25 00:55 Temperature 97.6 F 98.2 F Pulse Rate 80 82 Respiratory 18 16 Rate Blood Pressure 118/76 Blood Pressure 107/65 [Left] O2 Sat by Pulse 100 100 Oximetry ED Medical Decision Making - Lab Data Result diagrams: 02/19/20 23:42 02/19/20 23:42 - Medical Decision Making 1. Acute GI bleed: History of small bowel lesion AVM versus Meckel's diverticulum requiring interventional radiology in 2018. Currently taking Plavix antiplatelet therapy. I consulted business risk consultant Dr. Peck he recommended Protonix twice daily 2. Acute prerenal kidney injury reflective of GI blood loss. Suspect hiccups caused by uremia. Critical Care Time: Yes Critical care attestation.: If time is entered above; I have spent that time in minutes in the direct care of this critically ill patient, excluding procedure time. 40 minutes of critical care time excluding procedures were used in the care of the patient. I reviewed electronic record. I discussed treatment plan with the nursing team members at the bedside. I came immediately to the bedside once I reviewed abnormal lab parameters. Patient required multiple interventions and reassessments. I spoke with multiple consultants including hospitalist and [place] stroenterologist. ED Disposition Clinical Impression: Acute GI bleeding, Prerenal acute renal failure, Uremia Disposition: OP ADMIT IP TO THIS HOSP Is pt being admited?: Yes Does the pt Need Aspirin: No Condition: Stable Forms: Accompanied Note
[2020-02-20] MEDS ORDERED: PANTOPRAZOLE 40 MG INJ IV ONE (02:02)
[2020-02-20 02:17] LABS: INR 1.11 (0.87-1.13)
[2020-02-20] MEDS ORDERED: DEXTROSE 50% IN WATER (25GM) 50 ML SYRINGE IV PRN (02:46)
[2020-02-20] MEDS ORDERED: ACETAMINOPHEN 325 MG TAB PO PRN (02:46)
[2020-02-20] MEDS ORDERED: ONDANSETRON 4 MG/2 ML INJ IV PRN (02:46)
--- NOTE | 2020-02-20 03:00 | History and Physical Report ---
History of Present Illness Date of examination: 02/20/20 Date of admission: 02/20/2020 Chief complaint: Black Stool Hiccup History of present illness: 69-year-old male with known history of COPD, diabetes mellitus, hypertension, sarcoidosis, history of GI bleed involving the small bowel requiring a previous embolization of the ileocolic artery presenting to the emergency room today complaining of dark stool and hiccups which has been ongoing for the past 2 days. He has had some mild abdominal discomfort especially with bowel movement. Patient denies any fever or chills, no chest pain or shortness of breath, no headache or dizziness, he has had some nausea but no vomiting. He denies any diarrhea. He denies any bright red blood per rectum. Patient denies taking any nonsteroidal anti-inflammatory medication. Patient is on Plavix for atrial fibrillation. Evaluation in the emergency room today reveals potassium of 5.4 hemoglobin and hematocrits has been within normal limits. Occ Med Physician Dr. Peck has been consulted by the ER physician. Madi mmendation is to place patient on IV Protonix twice daily. Patient will be promptly evaluated. Past History Past Medical History: COPD, diabetes, hypertension, other (Asthma) Past Surgical History: No surgical history Social history: no significant social history Family history: no significant family history Medications and Allergies Allergies Allergy/AdvReac Type Severity Reaction Status Date / Time No Known Allergies Allergy Verified 04/26/18 14:53 Home Medications Medication Instructions Recorded Confirmed Last Taken Type Theophylline Anhydrous ER [Juan David-24] 300 mg PO BID #60 capsule 03/07/18 02/20/20 05/05/18 09:00 Rx Clopidogrel 75 mg PO DAILY 02/20/20 02/20/20 Unknown History Empagliflozin (Nf) [Jardiance (Nf)] 10 mg PO DAILY 02/20/20 02/20/20 Unknown History Sitagliptin Phosphate [Januvia] 100 mg PO DAILY 02/20/20 02/20/20 Unknown History atenoloL [Tenormin] 50 mg PO DAILY 02/20/20 02/20/20 Unknown History lisinopriL [Zestril TAB] 10 mg PO QDAY 02/20/20 02/20/20 Unknown History Review of Systems Constitutional: no fever, no chills Ears, nose, mouth and throat: no nasal congestion, no sore throat Cardiovascular: no chest pain, no palpitations Respiratory: no cough, no shortness of breath Gastrointestinal: BRBPR, melena, no abdominal pain, no nausea, no vomiting, no diarrhea Genitourinary Male: no dysuria, no hematuria, no flank pain Musculoskeletal: no neck pain, no low back pain Integumentary: no rash, no pruritis Neurological: no headaches, no confusion Psychiatric: no anxiety, no depression Exam - Constitutional Vitals: Temp Pulse Resp BP Pulse Ox 98.2 F 66 18 107/62 100 02/20/20 00:55 02/20/20 02:33 02/20/20 02:33 02/20/20 02:33 02/20/20 02:33 General appearance: Present: no acute distress, well-nourished - EENT Eyes: Present: PERRL, EOM intact. Absent: scleral icterus ENT: hearing intact, clear oral mucosa, dentition normal - Neck Neck: Present: supple, normal ROM - Respiratory Respiratory effort: normal Respiratory: bilateral: CTA - Cardiovascular Rhythm: regular Heart Sounds: Present: S1 & S2. Absent: gallop, systolic murmur, diastolic murmur, rub - Extremities Extremities: no ischemia, pulses intact, pulses symmetrical, No edema, Full ROM Peripheral Pulses: within normal limits - Abdominal General gastrointestinal: Present: soft, non-tender, non-distended, normal bowel sounds. Absent: mass - Integumentary Integumentary: Present: clear, warm, dry. Absent: rash - Musculoskeletal Musculoskeletal: strength equal bilaterally - Psychiatric Psychiatric: appropriate mood/affect, intact judgment & insight, memory intact, cooperative - Neurologic Neurologic: CNII-XII intact, no focal deficits, moves all extremities Results - Labs CBC & Chem 7: 02/19/20 23:42 02/19/20 23:42 Labs: Abnormal lab results 02/19/20 02/19/20 Range/Units 23:42 23:42 WBC 15.0 H (4.5-11.0) K/mm3 Lymph % (Auto) 11.8 L (13.4-35.0) % Nicholas % (Auto) 9.3 H (0.0-7.3) % Nicholas # 1.4 H (0.0-0.8) K/mm3 Seg Neutrophils % 77.1 H (40.0-70.0) % Seg Neutrophils # 11.6 H (1.8-7.7) K/mm3 Potassium 5.4 H (3.6-5.0) mmol/L Carbon Dioxide 19 L (22-30) mmol/L BUN 106 H (9-20) mg/dL Creatinine 1.5 H (0.8-1.3) mg/dL Glucose 207 H (75-100) mg/dL Assessment and Plan - Patient Problems (1) Rectal bleeding Current Visit: No Status: Acute Plan to address problem: Etiology is unclear. Will monitor for further bleeding monitor CBC. Consult has been placed to grass cutter for further evaluation and recommendation. (2) Prerenal acute renal failure Current Visit: Yes Status: Acute Plan to address problem: Patient placed on IV fluid. Will monitor BUN and creatinine. (3) AF (atrial fibrillation) Current Visit: No Status: Acute (4) Diabetes Current Visit: No Status: Acute Plan to address problem: We will continue to monitor Accu-Chek. (5) DVT prophylaxis Current Visit: Yes Status: Acute Plan to address problem: Patient placed on sequential compression device. (6) Full code status Current Visit: Yes Status: Acute
[2020-02-20] MEDS: SODIUM CHLORIDE 0.9% 1000 ML 1,000 ML IV SCH ×3 (03:24→22:11)
[2020-02-20] MEDS ORDERED: SODIUM CHLORIDE 0.9% 1000 ML 1,000 ML ONE (03:27)
[2020-02-20] MEDS: PANTOPRAZOLE 40 MG INJ IV SCH ×2 (09:26→22:11)
[2020-02-20] MEDS ORDERED: HYDROmorphone 2 MG/1 ML INJ IV PRN (10:42)
[2020-02-20] MEDS ORDERED: oxyCODONE /ACETAMINOPHEN 5-325MG TAB PO PRN (10:43)
[2020-02-20] MEDS ORDERED: SODIUM POLYSTYRENE 15 GM/60 ML ORAL LIQD PO ONE (11:00)
[2020-02-20] MEDS: INSULIN LISPRO 100 UNIT/ML VIAL 3 mL SUB-Q SCH ×3 (12:17→22:11)
--- NOTE | 2020-02-20 14:20 | Gastroenterology Consultation ---
History of Present Illness - Reason for Consult Consult date: 02/20/20 GI bleed Requesting physician: MERE RUSSO - History of Present Illness This is a 69 yo male with pmh of prior lower GI bleed from bleeding lesion in ileum s/p embolization in 2018 admitted for GI bleed after presenting with passing dark stools for a few days. Patient presenting with a few days of passing dark stools and hiccups. No abdominal pain, bright red blood in the stool, or vomiting. Patient had Pillcam capsule endoscopy on 12/14/2018 with mild gastritis and duodenitis but no small bowel pathology. Colonoscopy on 05/18/2018 showed diverticulosis, small polyps, and internal hemorrhoids. EGD on 11/08/2018 showed gastritis. Denies NSAID use. medication list reviewed. Past History Past Medical History: COPD, diabetes, hypertension, other (Asthma) Past Surgical History: No surgical history Social history: no significant social history Family history: no significant family history Medications and Allergies Allergies Allergy/AdvReac Type Severity Reaction Status Date / Time No Known Allergies Allergy Verified 04/26/18 14:53 Home Medications Medication Instructions Recorded Confirmed Last Taken Type Theophylline Anhydrous ER (Nf) 300 mg PO BID #60 capsule 03/07/18 02/20/20 05/05/18 09:00 Rx [Juan David-24 (Nf)] Clopidogrel 75 mg PO DAILY 02/20/20 02/20/20 Unknown History Empagliflozin (Nf) [Jardiance (Nf)] 10 mg PO DAILY 02/20/20 02/20/20 Unknown History Sitagliptin Phosphate [Januvia] 100 mg PO DAILY 02/20/20 02/20/20 Unknown History atenoloL [Tenormin] 50 mg PO DAILY 02/20/20 02/20/20 Unknown History lisinopriL [Zestril TAB] 10 mg PO QDAY 02/20/20 02/20/20 Unknown History Active Meds: Active Medications Acetaminophen (Tylenol) 650 mg PO Q4H PRN PRN Reason: Pain MILD(1-3)/Fever >100.5/GREGG Atenolol (Tenormin) 50 mg PO DAILY SHADI Dextrose (D50w (25gm) Syringe) 0 ml IV Q30MIN PRN; Protocol PRN Reason: Hypoglycemia Hydromorphone HCl (Dilaudid) 1 mg IV Q4H PRN PRN Reason: Pain , Severe (7-10) Sodium Chloride (Nacl 0.9% 1000 Ml) 1,000 mls @ 125 mls/hr IV DIRECT [facility] Last Admin: 02/20/20 12:14 Dose: 125 mls/hr Documented by: Insulin Human Lispro (Humalog) 0 unit SUB-Q ACHS [facility]; Protocol Last Admin: 02/20/20 12:17 Dose: Not Given Documented by: Ondansetron HCl (Zofran) 4 mg IV Q8H PRN PRN Reason: Nausea And Vomiting Oxycodone/Acetaminophen (Percocet 5/325) 1 tab PO Q6H PRN PRN Reason: Pain, Moderate (4-6) Pantoprazole Sodium (Protonix) 40 mg IV BID [facility] Last Admin: 02/20/20 09:26 Dose: 40 mg Documented by: Sodium Chloride (Sodium Chloride Flush Syringe 10 Ml) 10 ml IV BID [facility] Last Admin: 02/20/20 09:27 Dose: 10 ml Documented by: Sodium Chloride (Sodium Chloride Flush Syringe 10 Ml) 10 ml IV PRN PRN PRN Reason: LINE FLUSH Theophylline (Theodur) 300 mg PO Q12HR [facility] Review of Systems - Review of Systems All systems: negative Constitutional: no weight loss, no weight gain Cardiovascular: no chest pain Respiratory: no cough Gastrointestinal: melena, no abdominal pain, no nausea, no vomiting, no diarrhea Musculoskeletal: no gait dysfunction Neurological: weakness Psychiatric: no anxiety Endocrine: no cold intolerance Hematologic/Lymphatic: no easy bruising Exam - Constitutional Vital Signs: Temp Pulse Resp BP Pulse Ox 98.0 F 68 18 118/55 98 02/20/20 08:05 02/20/20 11:45 02/20/20 13:33 02/20/20 09:11 02/20/20 13:33 General appearance: no acute distress - EENT Eyes: EOM intact ENT: hearing intact - Neck Neck: supple - Respiratory Respiratory effort: normal Respiratory: bilateral: CTA - Cardiovascular Rhythm: regular Heart Sounds: Present: S1 & S2 - Gastrointestinal General gastrointestinal: Present: soft, non-tender, non-distended - Integumentary Integumentary: Present: clear, warm - Neurologic Neurological: alert and oriented x3 - Labs CBC & Chem 7: 02/20/20 13:25 02/20/20 13:25 Lab Results: Laboratory Results - last 24 hr 02/19/20 02/19/20 02/20/20 23:42 23:42 01:28 WBC 15.0 H RBC 3.97 Hgb 12.0 Hct 35.9 MCV 90 MCH 30 MCHC 33 RDW 14.2 Plt Count 311 Lymph % (Auto) 11.8 L Morris % (Auto) 9.3 H Eos % (Auto) 1.2 Baso % (Auto) 0.6 Lymph # 1.8 Morris # 1.4 H Eos # 0.2 Baso # 0.1 Seg Neutrophils % 77.1 H Seg Neutrophils # 11.6 H PT 14.5 INR 1.11 Sodium 137 Potassium 5.4 H Chloride 101.5 Carbon Dioxide 19 L Anion Gap 22 BUN 106 H Creatinine 1.5 H Estimated GFR 56 BUN/Creatinine Ratio 71 Glucose 207 H POC Glucose Calcium 8.9 02/20/20 02/20/20 09:17 12:25 WBC RBC Hgb Hct MCV MCH MCHC RDW Plt Count Lymph % (Auto) Morris % (Auto) Eos % (Auto) Baso % (Auto) Lymph # Morris # Eos # Baso # Seg Neutrophils % Seg Neutrophils # PT INR Sodium Potassium Chloride Carbon Dioxide Anion Gap BUN Creatinine Estimated GFR BUN/Creatinine Ratio Glucose POC Glucose 204 H 186 H Calcium Assessment and Plan - Patient Problems (1) Acute GI bleeding Current Visit: Yes Status: Acute Plan to address problem: # Melena - previous h/o ileal lesion bleeding s/p embolization in 2017. - Pillcam capsule endoscopy on 12/14/2018 with mild gastritis and duodenitis but no small bowel pathology. Colonoscopy on 05/18/2018 showed diverticulosis, small polyps, and internal hemorrhoids. EGD on 11/08/2018 showed gastritis. - no active bleeding at this time. - Hgb at 12. Rec - will plan for EGD tomorrow. - clear liquids and NPO Mn - continue with protonix IV. - monitor H/H serially. - hold anticoagulation. Patient was on plavix at home
[2020-02-20 14:22] LABS: Hematocrit 31.1 % (35.5-45.6); Hemoglobin 10.9 gm/dl (11.8-15.2); Mean Corpuscular HGB Conc 35 % (32-34); Mean Corpuscular Volume 90 fl (84-94); Platelet Count 266 K/mm3 (140-440); Red Blood Count 3.46 M/mm3 (3.65-5.03); Red Cell Distribution Width 14.4 % (13.2-15.2)
[2020-02-20 14:41] LABS: BUN/Creatinine Ratio 65; Blood Urea Nitrogen 85 mg/dL (9-20); Calcium 8.7 mg/dL (8.4-10.2); Hemolysis Index 16
--- NOTE | 2020-02-20 14:53 | Event Note ---
Date: 02/20/20 This is a 69-year-old male with COPD, DM, HTN, sarcoidosis, atrial fibrillation (on Plavix) and prior lower GI bleed from bleeding lesion in ileum s/p embolization in 2018 that presents to the emergency department complaints of passing dark stools and hiccups for 2 days. GI has been consulted and was started on Protonix IV twice daily. Admission H/H 12/35 and will check H&H every 8 hours. He was admitted with leukocytosis (15), acute kidney injury (creatinine 1.5) and hyperkalemia (5.4). He received p.o. Kayexalate and will trend BMP. He is currently on IV hydration he is n.p.o. except medication pending GI evaluation. Home medications reconciled and theophylline restarted, holding TIMOTEO and ARB in setting of RIVER, and holding anticoagulation in setting of GI bleed. Patient said that he has an ulcer on his stomach however is unsure of the type and treatment received. VSS continue to monitor.
[2020-02-20] MEDS: THEOPHYLLINE ANHYDROUS ER 300 MG TAB PO SCH ×2 (17:47→22:12)
[2020-02-20] MEDS ORDERED: [UNRECOGNIZED DRUG - OTHER] PO SCH (22:00)
[2020-02-20] MEDS ORDERED: THEOPHYLLINE PO SCH (22:00)
[2020-02-21 00:14] LABS: Hemoglobin 10.2 gm/dl (11.8-15.2)
[2020-02-21] MEDS: SODIUM CHLORIDE 0.9% 1000 ML 1,000 ML IV SCH (06:17)
[2020-02-21] MEDS: INSULIN LISPRO 100 UNIT/ML VIAL 3 mL SUB-Q SCH ×3 (07:35→16:43)
[2020-02-21] MEDS ORDERED: SODIUM CHLORIDE 0.9% 1000 ML 1,000 ML IV SCH (08:30)
--- NOTE | 2020-02-21 09:07 | Progress Note ---
Assessment and Plan - Patient Problems (1) Acute GI bleeding Current Visit: Yes Status: Acute Plan to address problem: - Pillcam capsule endoscopy on 12/14/2018 with mild gastritis and duodenitis but no small bowel pathology. - Colonoscopy on 05/18/2018 showed diverticulosis, small polyps, and internal hemorrhoids. - EGD on 11/08/2018 showed gastritis. - 02/20 EGD showed Antral gastritis with nonbleeding erosion, LA grade B distal esophagitis likely 2/2 reflux. cannot rule out underlying Harris's esophagus (Biopsies not obtained due to recent plavix use), Normal duodenum exam. - Trend H/H - Protonix PO qday - Follow up in GI clinic. Consider repeat EGD to rule out BE - Can resume plavix per GI (2) Prerenal acute renal failure Current Visit: Yes Status: Resolved Plan to address problem: - maybe secondary to vasomotor nephropathy - Admit Cr 1.3 - Trend BMP (3) AF (atrial fibrillation) Current Visit: No Status: Chronic Plan to address problem: -Resume Plavix per GI - BB restarted (4) Diabetes Current Visit: No Status: Chronic Plan to address problem: - SSI - Accucheck ACHS - Hypoglycemia protocol - 02/19 Hbg A1c 6.9 (5) Sarcoidosis Current Visit: No Status: Chronic (6) DVT prophylaxis Current Visit: Yes Status: Acute Plan to address problem: - SCDs while in bed - OOB ad darryl History Interval history: This is a 69-year-old male with COPD, DM, HTN, sarcoidosis, atrial fibrillation (on Plavix) and prior lower GI bleed from bleeding lesion in ileum s/p embolization in 2017 that presents to the emergency department complaints of passing dark stools and hiccups for 2 days. His H/H has been stable. GI plans to perform an EGD this AM. Hospitalist Physical - Constitutional Vitals: Temp Pulse Resp BP Pulse Ox 98.1 F 98 H 18 129/77 98 02/21/20 03:44 02/21/20 03:44 02/21/20 08:24 02/21/20 03:44 02/21/20 08:24 General appearance: Present: no acute distress, well-nourished - EENT Eyes: Present: PERRL ENT: hearing intact - Neck Neck: Present: normal ROM - Respiratory Respiratory effort: normal Respiratory: bilateral: CTA - Cardiovascular Rhythm: regular Heart Sounds: Present: S1 & S2. Absent: systolic murmur, diastolic murmur - Extremities Extremities: no ischemia, pulses intact, pulses symmetrical, No edema, normal temperature, normal color, Full ROM Peripheral Pulses: within normal limits - Abdominal General gastrointestinal: soft, non-tender, normal bowel sounds - Integumentary Integumentary: Present: clear, warm, dry - Psychiatric Psychiatric: appropriate mood/affect, cooperative - Neurologic Neurologic: CNII-XII intact, no focal deficits, moves all extremities - Allied Health Allied health notes reviewed: nursing Results - Labs CBC & Chem 7: 02/21/20 09:00 02/21/20 09:00 Labs: Laboratory Last Values WBC 16.2 K/mm3 (4.5-11.0) H 02/20/20 13:25 RBC 3.46 M/mm3 (3.65-5.03) L 02/20/20 13:25 Hgb 10.2 gm/dl (11.8-15.2) L 02/20/20 22:55 Hct 31.0 % (35.5-45.6) L 02/20/20 22:55 MCV 90 fl (84-94) 02/20/20 13:25 MCH 32 pg (28-32) 02/20/20 13:25 MCHC 35 % (32-34) H 02/20/20 13:25 RDW 14.4 % (13.2-15.2) 02/20/20 13:25 Plt Count 266 K/mm3 (140-440) 02/20/20 13:25 Lymph % (Auto) 11.8 % (13.4-35.0) L 02/19/20 23:42 Fulton % (Auto) 9.3 % (0.0-7.3) H 02/19/20 23:42 Eos % (Auto) 1.2 % (0.0-4.3) 02/19/20 23:42 Baso % (Auto) 0.6 % (0.0-1.8) 02/19/20 23:42 Lymph # 1.8 K/mm3 (1.2-5.4) 02/19/20 23:42 Fulton # 1.4 K/mm3 (0.0-0.8) H 02/19/20 23:42 Eos # 0.2 K/mm3 (0.0-0.4) 02/19/20 23:42 Baso # 0.1 K/mm3 (0.0-0.1) 02/19/20 23:42 Seg Neutrophils % 77.1 % (40.0-70.0) H 02/19/20 23:42 Seg Neutrophils # 11.6 K/mm3 (1.8-7.7) H 02/19/20 23:42 PT 14.5 Sec. (12.2-14.9) 02/20/20 01:28 INR 1.11 (0.87-1.13) 02/20/20 01:28 Sodium 142 mmol/L (137-145) 02/20/20 13:25 Potassium 4.9 mmol/L (3.6-5.0) 02/20/20 13:25 Chloride 112.5 mmol/L (98-107) H 02/20/20 13:25 Carbon Dioxide 15 mmol/L (22-30) L 02/20/20 13:25 Anion Gap 19 mmol/L 02/20/20 13:25 BUN 85 mg/dL (9-20) H 02/20/20 13:25 Creatinine 1.3 mg/dL (0.8-1.3) 02/20/20 13:25 Estimated GFR > 60 ml/min 02/20/20 13:25 BUN/Creatinine Ratio 65 % 02/20/20 13:25 Glucose 253 mg/dL (75-100) H 02/20/20 13:25 POC Glucose 155 (70-105) H 02/21/20 07:38 Hemoglobin A1c 6.9 % (4-6) H 02/20/20 13:25 Calcium 8.7 mg/dL (8.4-10.2) 02/20/20 13:25 Barnett/IV: Voiding Method Toilet IV Catheter Type [Left Forearm INT / Saline Lock ] IV Catheter Type [Left Hand] Peripheral IV Active Medications - Current Medications Current Medications: Generic Name Dose Route Start Last Admin Trade Name Freq PRN Reason Stop Dose Admin Acetaminophen 650 mg 02/20/20 02:46 Tylenol PO Q4H PRN Pain MILD(1-3)/Fever >100.5/GREGG Atenolol 50 mg 02/21/20 10:00 Tenormin PO DAILY SHADI Dextrose 0 ml 02/20/20 02:46 D50w (25gm) Syringe IV Q30MIN PRN Hypoglycemia Protocol Hydromorphone HCl 1 mg 02/20/20 10:42 Dilaudid IV Q4H PRN Pain , Severe (7-10) Sodium Chloride 1,000 mls @ 125 mls/hr 02/20/20 03:00 02/21/20 06:17 Nacl 0.9% 1000 Ml IV 125 mls/hr DIRECT SHADI Administration Sodium Chloride 1,000 mls @ 50 mls/hr 02/21/20 08:30 Nacl 0.9% 1000 Ml IV 02/21/20 20:00 DIRECT SHADI Insulin Human Lispro 0 unit 02/20/20 11:30 02/21/20 07:35 Humalog SUB-Q Not Given ACHS SHADI Protocol Ondansetron HCl 4 mg 02/20/20 02:46 Zofran IV Q8H PRN Nausea And Vomiting Oxycodone/Acetaminophen 1 tab 02/20/20 10:43 Percocet 5/325 PO Q6H PRN Pain, Moderate (4-6) Pantoprazole Sodium 40 mg 02/20/20 10:00 02/20/20 22:11 Protonix IV 40 mg BID SHADI Administration Sodium Chloride 10 ml 02/20/20 10:00 02/20/20 22:12 Sodium Chloride Flush Syringe 10 Ml IV 10 ml BID SHADI Administration Sodium Chloride 10 ml 02/20/20 02:46 Sodium Chloride Flush Syringe 10 Ml IV PRN PRN LINE FLUSH Theophylline 300 mg 02/20/20 12:00 02/20/20 22:12 Theodur PO 300 mg Q12HR SHADI Administration
[2020-02-21 09:27] LABS: Basophils # (Auto) 0.1 K/mm3 (0.0-0.1); Basophils % (Auto) 0.6 % (0.0-1.8); Eosinophils # (Auto) 0.3 K/mm3 (0.0-0.4); Eosinophils % (Auto) 2.8 % (0.0-4.3); Hematocrit 28.2 % (35.5-45.6); Hemoglobin 9.4 gm/dl (11.8-15.2); Lymphocytes # (Auto) 1.4 K/mm3 (1.2-5.4); Lymphocytes % (Auto) 12.2 % (13.4-35.0); Mean Corpuscular HGB Conc 33 % (32-34); Mean Corpuscular Volume 90 fl (84-94); Monocytes # (Auto) 1.1 K/mm3 (0.0-0.8); Monocytes % (Auto) 9.4 % (0.0-7.3); Platelet Count 253 K/mm3 (140-440); Red Blood Count 3.13 M/mm3 (3.65-5.03); Red Cell Distribution Width 14.4 % (13.2-15.2)
[2020-02-21] MEDS: PANTOPRAZOLE 40 MG INJ IV SCH (09:31)
[2020-02-21 09:37] LABS: INR 1.13 (0.87-1.13)
[2020-02-21 09:53] LABS: BUN/Creatinine Ratio 37; Blood Urea Nitrogen 37 mg/dL (9-20); Calcium 8.3 mg/dL (8.4-10.2); Hemolysis Index 27
[2020-02-21] MEDS ORDERED: SODIUM CHLORIDE 0.9% 1000 ML 1,000 ML ONE (09:59)
[2020-02-21] MEDS ORDERED: atenoloL 50 MG TAB PO SCH (10:00)
--- NOTE | 2020-02-21 10:14 | Anesthesia Consultation ---
Anesthesia Consult and Med Hx Date of service: 02/21/20 - Airway Anesthetic Teeth Evaluation: Dentures (upper and lower) ROM Head & Neck: Adequate Mental/Hyoid Distance: Adequate Mallampati Class: Class III Intubation Access Assessment: Possibly Difficult - Pulmonary Exam CTA: Yes - Cardiac Exam Cardiac Exam: RRR - Pre-Operative Health Status ASA Pre-Surgery Classification: ASA3 Proposed Anesthetic Plan: MAC - Pulmonary Hx Smoking: Yes (20 pk yr hx; quit 30yrs ago) Hx Asthma: Yes (symbicort daily, albuterol prn) Hx Respiratory Symptoms: Yes (pulmonary sarcoidosis, stable on current regimen) Home Oxygen Therapy: No Hx Sleep Apnea: No (CHUY PRE SCREEN HIGH RISK.) - Cardiovascular System Hx Hypertension: Yes Hx Heart Attack/AMI: No Hx Percutaneous Transluminal Coronary Angioplasty (PTCA): No Hx Cardia Arrhythmia: Yes (a-fib; last dose plavix 02/19/20) - Central Nervous System CVA: No - Gastrointestinal Hx Ulcer: Yes - Endocrine Hx Renal Disease: Yes (RIVER) Hx Liver Disease: No Hx Non-Insulin Dependent Diabetes: Yes (A1c 6.9) Hx Thyroid Disease: No - Hematic Hx Anemia: Yes - Other Systems Hx Obesity: Yes (BMI 34) - Additional Comments Anesthesia Medical History Comments: No hx anesthetic complications.
--- NOTE | 2020-02-21 10:14 | Anesthesia Day of Surgery ---
Anesthesia Day of Surgery - Day of Surgery Patient Examined: Yes Patient H&P Reviewed: Yes Patient is NPO: Yes
[2020-02-21] MEDS ORDERED: fentaNYL 100 MCG/2 ML INJ ONE (11:06)
[2020-02-21] MEDS ORDERED: LIDOCAINE MPF (2%) 20 MG/1 ML VIAL 5 ML ONE (11:07)
[2020-02-21] MEDS ORDERED: propofoL 200 MG/20 ML VIAL IV ONE (11:07)
[2020-02-21 11:41] VITALS: BP 134/74
--- NOTE | 2020-02-21 11:45 | Operative Report ---
Operative Report Operative Report: Date:02/21/2020 Pre procedure diagnosis:melena Post procedure diagnosis:antral erosion, gastritis, reflux esophagitis Procedure: Esophagogastroduodenoscopy Endoscopist: Jermaine Nieto MD Medications: Per anesthesia- see separate records for details Complications:none Estimated blood loss: None After careful discussion of the nature and purpose of the procedure, details of the technique, risks, benefits and alternatives, the patient gave consent. The patient was placed in the left lateral decubitus position and medicated by anesthesia- see separate records for details. The tip of the olympus video upper scope was passed per orum under direct view through the mouth and into the esophagus, stomach and duodenum. The scope was advanced to the secondportion of the duodenum without difficulty. Thesecond portion of the duodenum wasnormal. The bulb revealed normal findings. The scope was withdrawn back into the stomach and the stomach gently insufflated with air. The antrum revealed edematous erythematous mucosa with small nonbleeding erosion at the prepyloric region. The scope was then retroflexed and partially withdrawn to inspect the proximal stomach. The cardia, fundus and body were normal. The scope was then withdrawn in the forward view. The EG junction was at 38 cm. The distal esophagus showed LA grade B esophagitis. No bleeding noted. The rest of the esophagus was normal. The procedure was well tolerated and the patient was observed in the GI recovery unit. IMPRESSION: 1. Antral gastritis with nonbleeding erosion. 2. LA grade B distal esophagitis. likely 2/2 reflux. cannot rule out underlying Harris's esophagus. Biopsies not obtained due to recent plavix use. 3. Normal duodenum exam. Plan: 1. Protonix PO once daily. 2. Resume diet. 3. Ok for discharge per GI standpoint. Follow up in GI clinic. Consider repeat EGD to rule out BE. 4. Can resume plavix. Jermaine iNeto MD ([facility]
[2020-02-21] MEDS: THEOPHYLLINE ANHYDROUS ER 300 MG TAB PO SCH (12:15)
--- NOTE | 2020-02-21 13:35 | Post Anesthesia Evaluation ---
- Post Anesthesia Evaluation Patient Participated: Yes Airway Patent: Yes Stable Respiratory Function: Yes Nausea/Vomiting: No Temp > 96.8F: Yes Pain Manageable: Yes Adequeate Hydration: Yes Anesthesia Complications: No
--- NOTE | 2020-02-21 16:58 | Discharge Summary ---
Providers - Providers Date of Admission: 02/20/20 02:01 Date of discharge: 02/21/20 Attending physician: UBALDO DELAROSA 02/20/20 02:00 Consult to Physician [CONS] Stat Comment: Consulting Provider: BEBO WICK Physician Instructions: Reason For Exam: acute GI bleed Primary care physician: [facility]MI[facility] Hospitalization Reason for admission: Upper GI bleeding Condition: Stable Procedures: EGD;1. Antral gastritis with nonbleeding erosion. 2. LA grade B distal esophagitis. likely 2/2 reflux. cannot rule out underlying Harris's esophagus. Biopsies not obtained due to recent plavix use. 3. Normal duodenum exam. Hospital course: 69-year-old male with known history of COPD, diabetes mellitus, hypertension, sarcoidosis, history of GI bleed involving the small bowel requiring a previous embolization of the ileocolic artery was admitted through emergency room with complaints of dark stool and hiccups which has been ongoing for the past 2 days. He has had some mild abdominal discomfort especially with bowel movement. Patient was symptomatically managed and subsequently evaluated by [employer] Dr. Wick in consultation , managed with IV fluids and IV Protonix subsequently underwent EGD this morning. EGD revealed; antral gastritis nonbleeding erosion distal esophagitis questionable Harris's esophagus status post biopsy normal duodenum. GI recommend Protonix, okay to continue Plavix Follow-up in the office in 2 weeks to discuss about the biopsy reports and further management. Today patient is comfortable no new complaints vital signs stable physical examinations unremarkable Cleared by GI for discharge and follow-up in office. Patient is stable at discharge Final diagnosis; --Upper GI bleeding; improved Hemodynamically stable, status post EGD, Protonix EGD: --Antral gastritis nonbleeding erosion; Protonix --LA grade B distal esophagitis/cannot rule out Harris's esophagus s/p biopsy, Protonix, avoid NSAID group of pain medications Advised Protonix --Acute kidney injury/vasomotor nephropathy Resolved, creatinine normal range, avoid nephrotoxins --History of atrial fibrillation Rate controlled, continue current management --Type 2 diabetes mellitus; Accu-Chek sliding scale coverage ADA diet insulin as needed --History of sarcoidosis; stable --DVT prophylaxis Increase ambulation stable. Cleared by GI for DC and follow-up in the office Disposition: DC-01 TO HOME OR SELFCARE Time spent for discharge: 32 min Core Measure Documentation - Palliative Care Palliative Care/ Comfort Measures: Not Applicable - Core Measures Any of the following diagnoses?: none Exam - Constitutional Vitals: Temp Pulse Resp BP Pulse Ox 97.7 F 96 H 19 134/74 98 02/21/20 11:30 02/21/20 12:14 02/21/20 11:40 02/21/20 12:14 02/21/20 11:40 General appearance: Present: no acute distress, well-nourished - EENT Eyes: Present: PERRL, EOM intact - Neck Neck: Present: supple, normal ROM - Respiratory Respiratory effort: normal Respiratory: bilateral: diminished, negative: rales, rhonchi, wheezing - Cardiovascular Rhythm: regular Heart Sounds: Present: S1 & S2 - Extremities Extremities: no ischemia, No edema - Abdominal General gastrointestinal: Present: soft, non-tender, non-distended, normal bowel sounds - Integumentary Integumentary: Present: clear, warm - Musculoskeletal Musculoskeletal: strength equal bilaterally - Psychiatric Psychiatric: appropriate mood/affect, cooperative - Neurologic Neurologic: CNII-XII intact, moves all extremities Plan Activity: advance as tolerated, fall precautions Diet: diabetic Additional Instructions: Advised to avoid NSAID group of pain medications. If you have worsening symptoms contact MD or go to emergency room. If you notice any new episodes of bleeding contact MD or go to emergency room immediately Follow up with: ANGELITA BERRIOS MD [Primary Care Provider] - 7 Days MIN,HOLLIE SCOTT MD [Staff Physician] - 14 Days Forms: Accompanied Note Prescriptions: Pantoprazole [Protonix TAB] 40 mg PO QDAY #30 tablet
[2020-02-22] MEDS ORDERED: NON-FORMULARY EACH (Clopidogrel 75 MG) PO SCH (10:00)
[2020-02-22] MEDS ORDERED: CLOPIDOGREL 75 MG TAB PO SCH (10:00)
[2020-02-22] MEDS ORDERED: PANTOPRAZOLE 40 MG TAB PO SCH (10:00)
== END 2020-02-21 18:23 | disposition home or self-care (01) ==
LOC: ED 21:58 → 4A 02-20 02:01
PROVIDERS: ADMIT Internal Medicine Geriatric Medicine; ATTEND Internal Medicine
DX: K29.60 Other gastritis without bleeding (principal); K21.0 Gastro-esophageal reflux disease with esophagitis; K29.80 Duodenitis without bleeding; N17.0 Acute kidney failure with tubular necrosis; K62.5 Hemorrhage of anus and rectum; I48.91 Unspecified atrial fibrillation; E11.9 Type 2 diabetes mellitus without complications; J44.9 Chronic obstructive pulmonary disease, unspecified; I10 Essential (primary) hypertension; D86.0 Sarcoidosis of lung; Z79.02 Long term (current) use of antithrombotics/antiplatelets; Z79.84 Long term (current) use of oral hypoglycemic drugs; Z79.899 Other long term (current) drug therapy
CPT/HCPCS: 36415; 43235; 80048; 82962; 83036; 83735; 84484; 85014; 85018; 85025; 85027; 85610; 93005; 96361; 96374; 96376; 99291; C9113; G0378; J2704; J3010; J7030; J7040; 80307; J3246